=== PATIENT | female | born 1955 | race African-American/Black ===

== ENCOUNTER 2024-08-26 16:19 | Emergency (ER) | payer MEDICARE ==
[~2024-08-26] VITALS: Ht 160 cm; Wt 77.1 kg
[2024-08-26 16:39] VITALS: O2SAT 100
[2024-08-26] MEDS: HYDROCODONE/ACETAMINOPHEN 5/325MG TABLET PO STA (19:41)
[2024-08-26 21:25] LABS: CHLORIDE 104 mEq/L (98-107); POTASSIUM 4.7 mEq/L (3.5-5.1); SODIUM 136 mEq/L (136-145)
[2024-08-26 21:26] LABS: CALCIUM 10.4 mg/dL (8.7-10.4); CARBON DIOXIDE 25 mEq/L (21-32)
[2024-08-26 21:30] LABS: BASOPHILS % 0.1 % (0.0-2.0); EOSINOPHILS % 1.6 % (0.0-5.0); LYMPHOCYTES % 21.7 % (20.0-50.0); MEAN CORPUSCULAR HEMOGLOBIN 27.4 pg (28.0-32.0); MEAN CORPUSCULAR HGB CONC 31.7 g/dL (31.0-37.0); MEAN CORPUSCULAR VOLUME 86.4 fL (81.0-99.0); MEAN PLATELET VOLUME 7.4 fl (7.4-10.4); MONOCYTES % 4.9 % (2.0-8.0); NEUTROPHILS % 71.7 % (40.0-76.0); PLATELET 235 x1000/uL (130-400); RED BLOOD CELL COUNT 4.74 mill/uL (4.2-5.4); RED CELL DISTRIBUTION WIDTH 16.6 % (11.6-14.6); WHITE BLOOD COUNT 9.3 x1000/uL (4.5-11.0)
[2024-08-26 21:31] LABS: CREATININE 0.8 mg/dL (0.6-1.0); GLUCOSE 105 mg/dL (70-105); UREA NITROGEN BLOOD 13 mg/dL (9-23)
[2024-08-26] MEDS ORDERED: AMOX1TAB16 MT (22:57)
[2024-08-26] MEDS ORDERED: ACET-2708 MT (23:01)
[2024-08-26] MEDS: KETOROLAC 30MG/ML VIAL IV STA (23:11)
[2024-08-26 23:26] VITALS: BP 160/91; PULSE 80; RESP 18; TEMP 36.7; O2SAT 97
[2024-08-26] MEDS ORDERED: IOHEXOL-300 100 ML BOTTLE ONE (23:27)
== END 2024-08-26 23:28 | disposition home or self-care (01) ==
LOC: ER 16:19
DX: R22.0 Localized swelling, mass and lump, head (principal); Z98.890 Other specified postprocedural states
CPT/HCPCS: 99285; 96374; 70487; 80048; 85025; 36415; J1885; Q9967